=== PATIENT | male | born 1990 | race Caucasian/White ===

== ENCOUNTER → 2023-08-28 09:27 | Outpatient (BNVA) | payer OTHER, SELFPAY | PROVIDERS: Visit Provider Family Medicine | DX: L02.212 Cutaneous abscess of back [any part, except buttock and flank] (principal); Z68.35 Body mass index [BMI] 35.0-35.9, adult; R03.0 Elevated blood-pressure reading, without diagnosis of hypertension; F17.200 Nicotine dependence, unspecified, uncomplicated | CPT/HCPCS: 80053; 80061; 84439; 84443; 85025 ==

== ENCOUNTER 2023-09-20 10:38 | Day surgery (SDC) | payer OTHER, SELFPAY ==
[2023-09-20] VITALS (12 sets, daily range): BP systolic 115–144; BP diastolic 68–100; PULSE 57–86; RESP 14–18; TEMP 36.3–36.8; O2SAT 96–100; BMI 32.1
--- NOTE | 2023-09-20 11:09 | W.PM.OPSUD ---
Surgery/Procedure H&P Update DATE OF PROCEDURE: September 20, 2023 DATE H&P PERFORMED: 09/03/23 H&P UPDATE INFORMATION: I have reviewed H&P completed within last 30 days, I have examined patient prior to procedure and No changes to prior documentation PLANNED PROCEDURE: Operation Date: 09/20/23 12:45 Proposed Procedures p Excision Mass/Lesion/Cyst Upper Torso/excision of complex pilondial cyst with cleft lift procedure(Not Applicable) - Humphrey Bautista DO
[2023-09-20] MEDS: sodium chloride 0.9% 1,000 ML 30 ML IV (11:22)
--- NOTE | 2023-09-20 11:38 | ANES.PREANE2 ---
Pre-Anesthetic Assessment Height/Weight: Height 1.75 m Weight 98.883 kg Temp Pulse Resp BP Pulse Ox O2 Del Method 98.2 F 57 L 17 140/99 99 Room Air 09/20/23 11:00 09/20/23 11:00 09/20/23 11:00 09/20/23 11:00 09/20/23 11:00 09/20/23 11:04 Operation Date: 09/20/23 12:45 Proposed Procedures p Excision Mass/Lesion/Cyst Upper Torso/excision of complex pilondial cyst with cleft lift procedure(Not Applicable) - Humphrey Bautista DO Last intake: Intake Last Liquid Date 09/19/23 Last Liquid Time 22:00 Last Solid Date 09/19/23 Last Solid Time 20:00 Social No alcohol and No tobacco Exam alert, oriented x 3, clear to auscultation bilaterally and regular rate & rhythm Airway Submandibular: within normal limits Cervical ROM: within normal limits Mallampati: Class II Pulmonary None reported CV/HEM None reported None reported Hepatic None reported GI None reported Metabolic None reported Anesthetic Plan ASA status: 2 Anesthesia: General Other: glidescope available Medications/Allergies Home Medications Medication Instructions Recorded Confirmed Last Taken Type No Known Home Medications 09/19/23 09/19/23 Unknown History Allergies Allergy/AdvReac Type Severity Reaction Status Date / Time No Known Allergies Allergy Unverified 09/03/23 10:58 Current Medications Generic Name Dose Route Start Last Admin Trade Name Freq PRN Reason Stop Dose Admin Sodium Chloride 1,000 mls @ 30 mls/hr 09/20/23 11:00 09/20/23 11:22 Sodium Chloride 0.9% IV 09/21/23 10:59 30 mls/hr .Q24H RAFI Administration PFS Anesthesia Medical History Nicotine use disorder dips 2 cans weekly Abscess of lower back BMI 35.0-35.9,adult Family History Mother Diabetes Social History Smoking and tobacco/nicotine status: current every day tobacco/nicotine user smokeless tobacco Smokeless tobacco user: chewing tobacco Alcohol intake: current Substance/Drug Use: never Adopted: No service: No Current occupational exposures/hazards: No Current gender identity: Male Data Anesthesia Cardiac Studies: No Data to Display
[2023-09-20] MEDS: piperacillin-tazobactam 3.375 GM in sodium chloride 0.9% (plus) 50 ML IV (12:03)
--- NOTE | 2023-09-20 14:05 | P.OP_ITS ---
Operative Report Date of procedure: September 20, 2023 Pre-op diagnosis: Complex pilonidal cyst Post-op diagnosis: same Procedure done: Excision of complex pilonidal cyst (78037) Cleft lift procedure (39602) Implants: Jasiel Specimens removed/disposition: Excision of complex pilonidal cyst Surgeon: Humphrey Bautista DO Anesthesia: General and Local Estimated blood loss (mL): 5 Complications: None apparent Brief History: This is a very pleasant 33-year-old gentleman who presented my office with a complex pilonidal cyst. The cyst tracked up to his lumbar spine and to the right on his lower back. This was present for several years. Excision of complex pilonidal cyst with cleft lift procedure was indicated. The risk and benefits were explained and documented. Procedure: Patient was wheeled into the operative room and general endotracheal intubation was achieved on the [facility] by the department of anesthesia. The patient was then placed prone on the OR table. Preoperatively the bilateral buttocks were pressed together to identify the area where the skin touches. This area was marked. The buttocks were then taped spread apart. The eve cleft was inspected prepped and draped in usual sterile fashion. A timeout was performed. All present were in agreement. Pilonidal sinus was located more to the right of the cleft. The cyst obviously extended a significant distance cephalad to the lumbar spine and to the right lower back. A lazy S shaped elliptical excision measuring 4.5 cm in width was performed over the pilonidal sinus from just left midline and into the right buttock lumbar spine, with the bottom curve of the S going just left of the anus. Electrocautery was then used to cut the fascia and dissect down through the subcutaneous tissue and around the pilonidal sinus, removing the sinus en bloc. This was a difficult dissection as there were multiple components of the pilonidal cyst. There were a couple of sinus tracts both superiorly and to the right that were included in the specimen. A fasciocutaneous flap was then created on the left side with Bovie cautery in cautery mode, going back 4.5 cm. The thickness of the flap was just over 1 cm. A fasciocutaneous flap was also created on the right side going back only 2 cm as this was a large closure. Hemostasis was achieved electrocautery. Jasiel was then placed down into the midline of the excision. The subcutaneous tissue was then approximated using 2-0 Vicryl in a simple interrupted fashion. A 15 [place] Gregory drain was then placed into the wound coming out of the left buttock. This was sutured in place with 3-0 silk. The dermis was then approximated with interrupted 3-0 Vicryl. Skin was closed with running 4-0 Monocryl. Dermabond was applied. A drain sponge was applied around the drain. Tissue came together off midline and without tension. Patient tolerated procedure well.
[2023-09-20] MEDS: fentaNYL 50 mcg/mL INJ 2mL IVP (15:12)
--- NOTE | 2023-09-20 15:38 | SUR.PHASEII ---
Per Dr. Bautista, additional rx called into [facility] for Augmentin 875mg BID X7 days, spoke with Lina.
[2023-09-20] MEDS: HYDROcodone-acetaminophen 10-325 mg Tablet 1 TAB PO (16:08)
--- NOTE | 2023-09-20 16:33 | ANE.PACU2 ---
Inpatient post-anesthesia follow up: Vital signs: Temperature 97.6 F Pulse Rate 64 Respiratory Rate 16 Blood Pressure 140/96 Pulse Oximetry 97 Oxygen Delivery Me thod Room Air Oxygen Flow Rate 6 Fraction of Inspir ed Oxygen Hydration adequate: Yes Nausea and vomiting: No Mental status: Baseline Additional Comments: no apparent anesthetic complications noted
== END 2023-09-20 17:04 | disposition home or self-care (01) ==
PROVIDERS: PCP Family Medicine; Visit Provider Surgery
PROC: (CPT 11772; principal; 2023-09-20 12:35)
DX: L05.91 Pilonidal cyst without abscess (principal); F17.220 Nicotine dependence, chewing tobacco, uncomplicated
CPT/HCPCS: 11772; 15570; 88304; J1100; J1170; J1885; J2250; J2405; J2543; J2704; J2710; J3010; J3490; J7030

== ENCOUNTER 2024-06-03 05:48 | Day surgery (SDC) | payer OTHER, SELFPAY ==
[2024-06-03] VITALS (10 sets, daily range): BP systolic 118–146; BP diastolic 82–105; PULSE 68–94; RESP 7–17; TEMP 36.1–36.6; O2SAT 96–100; BMI 34.7
--- NOTE | 2024-06-03 06:45 | PM.HP ---
Providers/Chief Complaint Primary Care Provider: Humphrey Zhao MD Chief Complaint: Z87.2 History of Present Illness Flo Gallegos is a 33 year old male Review of Systems General: Reports: 10 or more systems reviewed and unremarkable except in HPI and below Medications/Allergies Home Medications Medication Instructions Recorded Confirmed Last Taken Type No Known Home Medications 05/08/24 06/02/24 Unknown History Allergies Allergy/AdvReac Type Severity Reaction Status Date / Time No Known Allergies Allergy Verified 06/02/24 10:51 PFSH Acute PFSH: Medical History Hx of pilonidal cyst Excision of complex pilonidal cyst- 09/20/23 Dr Bautista Nicotine use disorder dips 2 cans weekly Abscess of lower back BMI 35.0-35.9,adult Family History Mother Diabetes Social History Smoking and tobacco/nicotine status: never used tobacco/nicotine Alcohol intake: current Substance/Drug Use: never Adopted: No service: No Current occupational exposures/hazards: No Current gender identity: Male Vitals/I&O/Wt Last Vital Signs Temp 97.6 F 06/03/24 06:05 Pulse 70 06/03/24 06:05 Resp 17 06/03/24 06:05 BP 143/105 06/03/24 06:05 Pulse Ox 97 06/03/24 06:05 O2 Del Method Room Air 06/03/24 06:07 Weight last 48 hrs Weight 235 lb A&P Assessment and plan (1) Chronic recurrent pilonidal cyst without abscess: Plan Excision of recurrent pilonidal cyst with cleft lift procedure Attestations Medical Necessity Statement*: home Coding Level of Care Code Acute Code for Chg Fwd Diagnoses Chronic recurrent pilonidal cyst without abscess L05.91
[2024-06-03] MEDS: sodium chloride 0.9% 1,000 ML 30 ML IV (06:46)
--- NOTE | 2024-06-03 06:54 | ANES.PREANE2 ---
Pre-Anesthetic Assessment Height/Weight: Height 1.75 m Weight 106.594 kg Temp Pulse Resp BP Pulse Ox O2 Del Method 97.6 F 70 17 143/105 97 Room Air 06/03/24 06:05 06/03/24 06:05 06/03/24 06:05 06/03/24 06:05 06/03/24 06:05 06/03/24 06:07 Operation Date: 06/03/24 07:00 Proposed Procedures p Repair of recurrent pilonidal cyst with cleft lift(Not Applicable) - Humphrey Bautista DO Familial anesthetic complications: None Was Beta Carlene taken within 24 hours: N/A Was Clonidine taken within 24 hours: N/A Last intake: Intake Last Liquid Date 06/02/24 Last Liquid Time 22:30 Last Solid Date 06/02/24 Last Solid Time 18:00 Social Tobacco (chews) and No alcohol Exam alert, oriented x 3, clear to auscultation bilaterally and regular rate & rhythm Airway Mallampati: Class III Dentition: full Comments: Comments: large neck boggs Metabolic Morbid Obesity Anesthetic Plan ASA status: 2 Anesthesia: General Risk of > 500 ml blood loss (7ml/kg in children): No Other Pertinent Information Grade II airway w/ MAC 3.5 (previously) Medications/Allergies Home Medications Medication Instructions Recorded Confirmed Last Taken Type No Known Home Medications 05/08/24 06/02/24 Unknown History Allergies Allergy/AdvReac Type Severity Reaction Status Date / Time No Known Allergies Allergy Verified 06/02/24 10:51 Current Medications Generic Name Dose Route Start Last Admin Trade Name Freq PRN Reason Stop Dose Admin Sodium Chloride 1,000 mls @ 30 mls/hr 06/03/24 06:00 06/03/24 06:46 Sodium Chloride 0.9% IV 06/04/24 05:59 30 mls/hr .Q24H RAFI Administration PFSH Anesthesia Medical History Hx of pilonidal cyst Excision of complex pilonidal cyst- 09/20/23 Dr Bautista Nicotine use disorder dips 2 cans weekly Abscess of lower back BMI 35.0-35.9,adult Family History Mother Diabetes Social History Smoking and tobacco/nicotine status: never used tobacco/nicotine Alcohol intake: current Substance/Drug Use: never Adopted: No service: No Current occupational exposures/hazards: No Current gender identity: Male Data Anesthesia Cardiac Studies: No Data to Display
[2024-06-03] MEDS: ceFAZolin 2,000 mg SDV 2000 MG IVP (06:57)
[2024-06-03] MEDS: lidocaine-epi 2% PF 1:200,000 20 mL SDV XX (07:49)
--- NOTE | 2024-06-03 10:33 | PM.OP ---
Operative Report Date of procedure: June 03, 2024 Surgeon: Humphrey Bautista DO Procedure: Pre-op diagnosis: Recurrent complex pilonidal cyst Post-op diagnosis: same Procedure done: Cleft lift procedure (77974) with excision of recurrent complex pilonidal cyst (24534) Implants: 15 [place] Gregory drain Specimens removed/disposition: Elliptical skin and subcutaneous excision with pilonidal cyst Surgeon: Humphrey Bautista DO Anesthesia: General and Local Estimated blood loss (mL): 5 Complications: None apparent Brief History: This is a very pleasant 30-year-old gentleman who presented to my office with a recurrent complex pilonidal cyst. He desired excision. Cleft lift procedure with excision of recurrent complex pilonidal cyst is indicated. The risks and benefits were explained and documented. Procedure: Patient was wheeled operative room and general endotracheal intubation was achieved on the [facility] by the department of anesthesia. The patient was then placed prone on the OR table. Preoperatively the bilateral buttocks were pressed together to identify the area where the skin touches. This area was marked. The buttocks were then taped spread apart. The inner eve cleft was inspected prepped and draped in usual sterile fashion. A timeout was performed. All present were in agreement. Pilonidal sinus was located more to the right of the inner eve cleft and extended cephalad into the right on the back. An elliptical excision measuring 5 cm in width was performed over the pilonidal sinus from just left midline and into the right buttock. Electrocautery was then used to cut the fascia and dissect down through the subcutaneous tissue and around the pilonidal sinus, removing the sinus en bloc. There were a couple of sinus tracts both superiorly and to the right that were included in the specimen. A fasciocutaneous flap was then created on the left side with Bovie cautery in cautery mode, going back 4 cm. The thickness of the flap was just over 1 cm. On the right as well. Hemostasis was achieved electrocautery. The fascia was approximated with 0 Vicryl sutures in an interrupted fashion. The subcutaneous tissue was then approximated using 2-0 Vicryl in a simple interrupted fashion. A 15 [place] Gregory drain was then placed into the wound coming out of the left lower back. This was sutured in place with 2-0 silk. The dermis was then approximated with interrupted 3-0 Vicryl. Skin was closed with running 4-0 Monocryl. Dermabond was applied. A drain sponge was applied around the drain. Tissue came together off midline and without tension. Patient tolerated procedure well.
--- NOTE | 2024-06-03 11:15 | ANE.PACU2 ---
Inpatient post-anesthesia follow up: Airway intact: Yes Vital signs: Temperature 97.8 F Pulse Rate 70 Respiratory Rate 17 Blood Pressure 135/98 Pulse Oximetry 96 Oxygen Delivery Me thod Room Air Oxygen Flow Rate 8 Fraction of Inspir ed Oxygen Hydration adequate: Yes Nausea and vomiting: No Pain level: 1 Mental status: Baseline
== END 2024-06-03 11:15 | disposition home or self-care (01) ==
PROVIDERS: PCP Family Medicine; Visit Provider Surgery
PROC: (CPT 11772; principal; 2024-06-03 07:00)
DX: L05.91 Pilonidal cyst without abscess (principal); F17.220 Nicotine dependence, chewing tobacco, uncomplicated; E66.01 Morbid (severe) obesity due to excess calories; Z68.34 Body mass index [BMI] 34.0-34.9, adult
CPT/HCPCS: 11772; 15570; 88304; J0131; J0330; J0690; J1100; J1171; J1885; J2250; J2371; J2405; J2704; J3010; J3490; J7030